=== PATIENT | male | born 1995 | race Caucasian/White ===

== ENCOUNTER 2022-03-06 18:01 | Emergency (ER) | payer MEDICAID, SELFPAY ==
[2022-03-06 18:03] VITALS: BP 137/88; PULSE 118; RESP 19; TEMP 37.2; O2SAT 99; BMI 15.6
--- NOTE | 2022-03-06 20:34 | NURSING ---
Vicente Sewell, 02/02/2010, was registered under this account. New account created all documentation was removed from this account.
== END 2022-03-06 22:19 | disposition home or self-care (01) ==
LOC: ED 20:33
PROVIDERS: Emergency Provider Emergency Medicine; Visit Provider Emergency Medicine
DX: Z00.00 Encounter for general adult medical examination without abnormal findings (principal)